=== PATIENT | female | born 1955 | race Native Hawaiian/Other Pacific Islander ===

== ENCOUNTER 2016-09-30 11:30 | Outpatient (CLI) | payer BC | END 2016-09-30 19:16 | disposition home or self-care (01) | LOC: US 11:30 | DX: M79.89 Other specified soft tissue disorders (principal) ==

== ENCOUNTER 2017-08-17 10:02 | Outpatient (CLI) | payer BC | END 2017-08-17 22:22 | disposition home or self-care (01) | LOC: MAMMO 10:02 | DX: Z12.31 Encounter for screening mammogram for malignant neoplasm of breast (principal) ==

== ENCOUNTER 2022-02-12 13:40 | Emergency (ER) | payer OTHER ==
[~2022-02-12] VITALS: Ht 167.6 cm; Wt 113.4 kg
[2022-02-12 13:50] VITALS: TEMP 99.2
[2022-02-12 14:20] LABS: PLATELET COUNT 203 K/uL (152-353)
[2022-02-12 14:26] LABS: POTASSIUM 3.9 mmol/L (3.6-5.2)
[2022-02-12 14:52] LABS: PARTIAL THROMBOPLASTIN TIME 24.3 SECONDS (24.5-33.6)
[2022-02-12 16:26] VITALS: BP 137/72
== END 2022-02-12 16:26 | disposition home or self-care (01) ==
LOC: ED 13:40
PROVIDERS: Emergency Medicine
DX: F03.90 Unspecified dementia, unspecified severity, without behavioral disturbance, psychotic disturbance, mood disturbance, and anxiety (principal); G40.A09 Absence epileptic syndrome, not intractable, without status epilepticus
CPT/HCPCS: 80053; 81002; 84484; 85027; 85610; 85730; 93005; 99283

== ENCOUNTER 2022-03-26 10:40 | Outpatient (CLI) | payer OTHER | END 2022-03-26 18:59 | disposition home or self-care (01) | LOC: US 10:40 | PROVIDERS: ATTEND Psychiatry & Neurology Neurology | DX: R41.82 Altered mental status, unspecified (principal) ==

== ENCOUNTER 2022-05-04 19:56 | Emergency (ER) | payer OTHER ==
[~2022-05-04] VITALS: Ht 170.2 cm; Wt 113.4 kg
[2022-05-04 20:00] VITALS: TEMP 97.3
[2022-05-04 21:33] LABS: PLATELET COUNT 192 K/uL (152-353)
[2022-05-04 21:41] LABS: POTASSIUM 4.4 mmol/L (3.6-5.2)
[2022-05-04 23:40] VITALS: BP 124/80
== END 2022-05-04 23:40 | disposition home or self-care (01) ==
LOC: ED 19:56
PROVIDERS: Emergency Medicine Emergency Medical Services
DX: J20.9 Acute bronchitis, unspecified (principal)
CPT/HCPCS: 36415; 80048; 85027; 87040; 87502; 87651; 94664; 96365; 96375; 99284; J0696; J1200; J2405; J2930

== ENCOUNTER 2022-06-02 09:27 | Outpatient (CLI) | payer OTHER | END 2022-06-02 19:09 | disposition home or self-care (01) | LOC: MAMMO 09:27 | PROVIDERS: ATTEND Nurse Practitioner Family | DX: Z12.31 Encounter for screening mammogram for malignant neoplasm of breast (principal) ==

== ENCOUNTER 2022-08-27 09:59 | Outpatient (CLI) | payer OTHER | END 2022-08-27 19:44 | disposition home or self-care (01) | LOC: RAD 09:59 | PROVIDERS: ATTEND Nurse Practitioner Family | DX: Z13.820 Encounter for screening for osteoporosis (principal); N95.8 Other specified menopausal and perimenopausal disorders ==